=== PATIENT | male | born 1985 | race Two or more races ===

== ENCOUNTER 2020-04-07 10:29 | Emergency (ER) | payer SELFPAY ==
[~2020-04-07] VITALS: Ht 167.6 cm; Wt 74.8 kg
[2020-04-07 10:58] VITALS: BP 111/76
== END 2020-04-07 16:12 | disposition home or self-care (01) ==
LOC: ER 10:29
DX: R05 Cough (principal); J02.9 Acute pharyngitis, unspecified; Z20.828 Contact with and (suspected) exposure to other viral communicable diseases
CPT/HCPCS: 36415; 71045; 87426